=== PATIENT | female | born 1985 | race Two or more races ===

== ENCOUNTER 2022-09-14 12:09 | Emergency (ER) | payer MEDICAID, OTHER ==
[~2022-09-14] VITALS: Ht 165.1 cm; Wt 125.9 kg
[2022-09-14 12:50] VITALS: BP 133/70; PULSE 72; RESP 18; TEMP 97.1; O2SAT 95
[2022-09-14] MEDS ORDERED: CYCL-839 PO (13:41)
[2022-09-14] MEDS ORDERED: IBU600T PO (13:41)
== END 2022-09-14 13:54 | disposition home or self-care (01) ==
LOC: ER 12:09
DX: S33.5XXA Sprain of ligaments of lumbar spine, initial encounter (principal); J45.909 Unspecified asthma, uncomplicated; V43.52XA Car driver injured in collision with other type car in traffic accident, initial encounter; Y93.89 Activity, other specified; Y92.89 Other specified places as the place of occurrence of the external cause; Y99.8 Other external cause status
CPT/HCPCS: 72100

== ENCOUNTER → 2023-02-15 | Emergency (ER) | payer MEDICAID, OTHER ==
[~2023-02-15] VITALS: Ht 167.6 cm; Wt 131.4 kg
[~2023-02-15] MED LIST: CYCL-839 PO; IBU600T PO
[2023-02-15 23:34] VITALS: BP 187/97; PULSE 63; RESP 16; O2SAT 98
== END | disposition left against medical advice (07) ==
LOC: ER 23:21
DX: S61.411A Laceration without foreign body of right hand, initial encounter (principal); Z53.21 Procedure and treatment not carried out due to patient leaving prior to being seen by health care provider; W26.8XXA Contact with other sharp object(s), not elsewhere classified, initial encounter; Y93.89 Activity, other specified; Y92.89 Other specified places as the place of occurrence of the external cause; Y99.8 Other external cause status

== ENCOUNTER 2024-02-20 05:15 | Emergency (ER) | payer OTHER, MEDICAID ==
[~2024-02-20] VITALS: Ht 170.2 cm; Wt 136.4 kg
[2024-02-20] MEDS: KETOROLAC TROMETH 30 MG/ML 1ML VIAL IM ONE (06:35)
[2024-02-20 06:42] VITALS: PULSE 78; RESP 14; O2SAT 98
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
[2024-02-20 07:56] VITALS: BP 132/88; RESP 18; TEMP 98; O2SAT 96
[2024-02-20] MEDS: ALBUTEROL SULF 2.5 MG/0.5ML(0.5%) NEB SOLN NEB ONE (07:58)
[2024-02-20] MEDS ORDERED: CYCL-839 PO (08:33)
[2024-02-20] MEDS ORDERED: IBU600T PO (08:33)
[2024-02-20 08:34] VITALS: PULSE 61
== END 2024-02-20 08:44 | disposition home or self-care (01) ==
LOC: EDBD 05:15 → ER 05:15
DX: S39.012A Strain of muscle, fascia and tendon of lower back, initial encounter (principal); M25.512 Pain in left shoulder; R07.89 Other chest pain; E66.9 Obesity, unspecified; Z79.899 Other long term (current) drug therapy; V89.2XXA Person injured in unspecified motor-vehicle accident, traffic, initial encounter; Y93.I9 Activity, other involving external motion; Y92.488 Other paved roadways as the place of occurrence of the external cause; Y99.8 Other external cause status
CPT/HCPCS: 36415; 71045; 72100; 84484; 96372; 99284; J1885

== ENCOUNTER 2024-12-24 10:01 | Emergency (ER) | payer MEDICAID, OTHER ==
[~2024-12-24] VITALS: Ht 165.1 cm; Wt 140.7 kg
[2024-12-24] MEDS ORDERED: NAPR-746 PO (10:47)
[2024-12-24] MEDS ORDERED: METH4PAK PO (10:47)
--- NOTE | 2024-12-24 10:47 | ED.PDOC ---
Musculoskeletal HPI Comments 39-year-old female presents to the ER with a chief complaint of right wrist and elbow pain. The patient has been experiencing the pain for approximately five months, which has recently started radiating to the right elbow about a month ago. The pain has worsened with the cord exposure. 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 Patient notes on having performed with a workload of two people, exacerbating the pain over time. The patient states on taking [id number] medications which manages the pain despite the persistence. denies any other symptoms at this time. Chief Complaint: Upper Extremity Time Seen by MD: 10:11 Primary Care Provider: NONE Reviewed Notes: Nurses Notes, Medications, Allergies Allergies: Coded Allergies: NO KNOWN ALLERGIES (Unverified , 09/14/22) Home Meds Active Scripts Naproxen (Naproxen) 500 Mg Tab, 500 MG PO BIDPC for 10 Days, #20 TAB 0 Refills Prov:JAMILA GARCIA NP 12/24/24 Methylprednisolone (Medrol Dosepak) 4 Mg Abdulaziz, 4 MG PO UD, #21 TAB 0 Refills UAD Prov:JAMILA GARCIA NP 12/24/24 Ibuprofen Micronized (MOTRIN TABLET) 600 Mg Tb, 600 MG PO TID PRN, #40 TAB *Black box warning-NSAIDS can increase risk of SD & hypertension, GI irritation, ulceration, bleed, perferation. Do not use post cardiac surgery. Use short duration/lowest effective dose. Prov:TORSTEN NIX MD 02/20/24 Cyclobenzaprine Hcl (Cyclobenzaprine Hcl) 10 Mg Tab, 10 MG PO Q8HP PRN for 3 Days, #9 TAB Prov:TORSTEN NIX MD 02/20/24 Cyclobenzaprine Hcl (Cyclobenzaprine Hcl) 10 Mg Tab, 1 TAB PO Q8HR, #15 TAB NEEDED FOR MUSCLE SPASM Prov:YVONNE IRIZARRY NP 09/14/22 Ibuprofen Micronized (MOTRIN TABLET) 600 Mg Tb, 1 TAB PO TID PRN, #20 TAB NEEDED FOR PAIN Prov:YVONNE IRIZARRY NP 09/14/22 Information Source: Patient Mode of Arrival: Ambulatory Location: Right Extremity Location: Elbow, Wrist Timing: Months Prehospital treatment: None Severity: Moderate Able to Move Extremity: Yes Bear Weight: Limited Pain: Moderate Hand Dominance: Right Mechanism: Spontaneous Circumstances: Work Related (possible) Onset of Symptoms: Spontaneous Symptoms: Pain DVT Risk Factors: NONE Associated signs and symptoms: Wrist pain, Elbow pain Past Medical History PAST MEDICAL HISTORY: Denies Surgical History: Denies all surgeries SOLAR DESIGNER/INSTALLER History: No Pertinent SOLAR DESIGNER/INSTALLER History Family History Family History: Reviewed,noncontributory to illness, Unknown Social History Smoker: Non-Smoker Alcohol: Denies ETOH Use Drugs: Denies Drug Use Lives In: Home Constitutional: denies: chills, diaphoresis, fatigue, fever, malaise, sweats, weakness, others EENTM: denies: blurred vision, double vision, ear bleeding, ear discharge, ear drainage, ear pain, ear ringing, eye pain, eye redness, hearing loss, mouth pain, mouth swelling, nasal discharge, nose bleeding, nose congestion, nose pain, photophobia, tearing, throat pain, throat swelling, voice changes, others Respiratory: denies: cough, hemoptysis, orthopnea, SOB at rest, shortness of breath, SOB with excertion, stridor, wheezing, others Cardiovascular: denies: chest pain, dizzy spells, diaphoresis, Dyspnea on exertion, edema, irregular heart beat, left arm pain, lightheadedness, palpitations, PND, syncope, others Gastrointestinal: denies: abdomen distended, abdominal pain, blood streaked bowels, constipated, diarrhea, dysphagia, difficulty swallowing, hematemesis, melena, nausea, poor appetite, poor fluid intake, rectal bleeding, rectal pain, vomiting, others Genitourinary: denies: abnormal vagina bleeding, burning, dyspareunia, dysuria, flank pain, frequency, hematuria, incontinence, pain, , vagina discharge, urgency, others Neurological: denies: dizziness, fainting, headache, left sided numbness, left sided weakness, numbness, paresthesia, pre-existing deficit, right sided numbness, right sided weakness, seizure, speech problems, tingling, tremors, weakness, others Musculoskeletal: reports: others (Right wrist and right elbow pain); denies: back pain, gout, joint pain, joint swelling, muscle pain, muscle stiffness, neck pain Integumetry: denies: bruises, change in color, change in hair/nails, dryness, laceration, lesions, lumps, rash, wounds, others Allergic/Immunocompromised: denies: Difficulty Healing, Frequent Infections, Hives, Itching, others Hematologic/Lymphatic: denies: anemia, blood clots, easy bleeding, easy bruising, swollen glands, others Endocrine: denies: excessive hunger, excessive sweating, excessive thirst, excessive urination, flushing, intolerance to cold, intolerance to heat, unexplained weight gain, unexplained weight loss, others Psychiatric: denies: anxiety, bipolar disorder, depression, hopeless, panic disorder, schizophrenia, sleepless, suicidal, others All Other Systems: Reviewed and Negative Physical Exam General Appearance: No Apparent Distress, Normal HEENT: Normal ENT Inspection, Pharynx Normal, TMs Normal Neck: Full Range of Motion, Non-Tender, Normal, Normal Inspection Respiratory: Chest Non-Tender, Lungs Clear, No Accessory Muscle Use, No Respiratory Distress, Normal Breath Sounds Cardiovascular: No Edema, No JVD, No Murmur, No Gallop, Normal Peripheral Pulses, Regular Rate/Rhythm Breast Exam: Deferred Gastrointestinal: No Organomegaly, Non Tender, No Pulsatile Mass, Normal Bowel Sounds, Soft Genitalia: Deferred Pelvic: Deferred Rectal: Deferred Extremities: No calf tenderness, Normal capillary refill, Normal inspection, Normal range of motion, Non-tender, No pedal edema Musculoskeletal : Apperance: Normal Neurologic: Alert, police commissioner II-XII nml as Tested, No Motor Deficits, Normal Affect, Normal Mood, No Sensory Deficits Cerebellar Function: Normal Reflexes: Normal Skin: Dry, Normal Color, Warm Lymphatic: No Adenopathy Was a procedure done? Was a procedure done?: No X-Ray, Labs, Meds, VS Vital Signs Date Time Temp Pulse Resp B/P (MAP) Pulse Ox O2 Delivery O2 Flow Rate FiO2 12/24/24 11:02 98 16 99 Room Air 12/24/24 11:02 98.0 98 16 142/87 (105) 99 98.0 12/24/24 10:02 98.1 99 16 139/91 100 98.1 Current Medications Medications (Trade) Dose Ordered Sig/Colby Route Start Time Stop Time Status Last Admin Ketorolac Tromethamine (Toradol Injection) 60 mg ONCE ONCE IM 12/24/24 10:45 12/24/24 10:46 DC 12/24/24 10:50 Methylprednisolone Sodium Succinate (Solu Medrol) 125 mg ONCE ONCE IM 12/24/24 10:45 12/24/24 10:46 DC 12/24/24 10:50 X-Ray, Labs, Meds, VS Comment 39-year-old female presents to the ER with a chief complaint of right wrist and elbow pain. Patient arrives alert and oriented, ABC's intact, afebrile, vital signs stable, saturating well in room air Patient was given: Prednisone, ketorolac injection. Tolerated medications with no adverse reaction. Additional MDM Review of External, Non-ED records: External records reviewed. Discussion with independent historian (EMS, family) history obtained from the patient/parents (if applicable) at bedside Chronic conditions affecting care: None Social determinants of health affecting care: None Consideration of admission (observation or admission): I considered escalation of care to admission for this patient, however given the reassuring workup, the patient is safe for outpatient management. Discussion with the Radiology: No Tests considered but not performed: Prescription medication considered but not given: 12 lead EKG interpretation: Time of 1ST Reevaluation: 10:40 Reevaluation 1ST: Unchanged Patient Education/Counseling: Diagnosis, Treatment, Prognosis Family Education/Counseling: No Family Present Departure 1 Departure Time of Disposition: 10:45 Impression: Primary Impression: Wrist pain Qualified Codes: M25.531 - Pain in right wrist Disposition: 01 HOME / SELF CARE / HOMELESS Condition: Stable e-Prescriptions Naproxen (Naproxen) 500 Mg Tab 500 MG PO BIDPC for 10 Days, #20 TAB 0 Refills Prov: JAMILA GARCIA NP 12/24/24 Methylprednisolone (Medrol Dosepak) 4 Mg Abdulaziz 4 MG PO UD, #21 TAB 0 Refills UAD Prov: JAMILA GARCIA NP 12/24/24 Critical Care Note Critical Care Time?: No Stability Stability form required: No I personally scribed for JAMILA GARCIA NP ([email or web address]) on 12/24/24 at 11:15. Electronically submitted by Kamaljit Soto ([email or web address]). JAMILA GARCIA NP Dec 24, 2024 10:47
[2024-12-24] MEDS: methylPREDNISolone SOD SUCC 125 MG/2 ML VL IM ONE (10:50)
[2024-12-24] MEDS: KETOROLAC TROMETH 60MG/2ML VIAL IM ONE (10:50)
[2024-12-24 11:02] VITALS: BP 142/87; PULSE 98; RESP 16; TEMP 98; O2SAT 99
== END 2024-12-24 11:05 | disposition home or self-care (01) ==
LOC: ER 10:01
DX: M25.531 Pain in right wrist (principal); M25.521 Pain in right elbow
CPT/HCPCS: 96372; 99284; J1885; J2919

== ENCOUNTER 2025-02-18 08:38 | Emergency (ER) | payer MEDICAID, OTHER ==
[~2025-02-18] VITALS: Ht 165.1 cm; Wt 141.4 kg
[~2025-02-18 08:38] MED LIST changes: +METH4PAK PO; +NAPR-746 PO
[2025-02-18 08:43] VITALS: TEMP 97.9
[2025-02-18 08:57] LABS: Hematocrit 40.9 % (36.0-46.0); Hemoglobin 13.7 g/dL (12.2-16.2); Mean Corpuscular Hemoglobin 28.1 pg (28.0-32.0); Mean Corpuscular Volume 83.9 fL (80.0-100.0); Nucleated Red Blood Cells % 0.0 %
[2025-02-18 09:11] LABS: Albumin 4.7 g/dL (3.2-4.8); Alkaline Phosphatase 93 U/L (46-116); Anion Gap 9 (5-15); BUN/Creatinine Ratio 14.9 (10.0-20.0); Blood Urea Nitrogen 11 mg/dL (9-23); Calcium 9.5 mg/dL (8.7-10.4); Carbon Dioxide 25 mmol/L (20-31); Chloride 106 mmol/L (98-107); Glucose 98 mg/dL (74-106); Magnesium 2.1 mg/dL (1.6-2.6); Potassium 4.2 mmol/L (3.5-5.1); Sodium 140 mmol/L (136-145); Total Protein 8.1 g/dL (5.7-8.2)
[2025-02-18 09:12] LABS: Alanine Aminotransferase 53 U/L (7-40); Bilirubin, Total 0.5 mg/dL (0.2-1.0)
--- NOTE | 2025-02-18 09:12 | ED.PDOC ---
HPI Comments 39 year old female with PMHx HTN presents to the ED with a chief complaint of chest pain onset 1 day. Patient states she had an argument at work with her boss, since then has been experiencing constant, LT-sided chest pain. Patient has experienced pain in the past after stressful situation, patient is currently feeling anxious. Denies shortness of breath, numbness/tingling, dizziness, headache, nausea, vomiting, diarrhea, abdominal pain. No other symptoms or modifying factors present at this time. Chief Complaint: Chest Pain Time Seen by MD: 09:00 Primary Care Provider: NONE Reviewed Notes: Medications, Allergies Allergies: Coded Allergies: NO KNOWN ALLERGIES (Unverified , 09/14/22) Home Meds Active Scripts Naproxen (Naproxen) 500 Mg Tab, 500 MG PO BIDPC for 10 Days, #20 TAB 0 Refills Prov:JAMILA GARCIA NP 12/24/24 Methylprednisolone (Medrol Dosepak) 4 Mg Abdulaziz, 4 MG PO UD, #21 TAB 0 Refills UAD Prov:JAMILA GARCIA NP 12/24/24 Ibuprofen Micronized (MOTRIN TABLET) 600 Mg Tb, 600 MG PO TID PRN, #40 TAB *Black box warning-NSAIDS can increase risk of NH & hypertension, GI irritation, ulceration, bleed, perferation. Do not use post cardiac surgery. Use short duration/lowest effective dose. Prov:TORSTEN NIX MD 02/20/24 Cyclobenzaprine Hcl (Cyclobenzaprine Hcl) 10 Mg Tab, 10 MG PO Q8HP PRN for 3 Days, #9 TAB Prov:TORSTEN NIX MD 02/20/24 Cyclobenzaprine Hcl (Cyclobenzaprine Hcl) 10 Mg Tab, 1 TAB PO Q8HR, #15 TAB NEEDED FOR MUSCLE SPASM Prov:YVONNE IRIZARRY NP 09/14/22 Ibuprofen Micronized (MOTRIN TABLET) 600 Mg Tb, 1 TAB PO TID PRN, #20 TAB NEEDED FOR PAIN Prov:YVONNE IRIZARRY NP 09/14/22 Information Source: Patient Mode of Arrival: Ambulatory Severity: Moderate Timing: Days Duration: Since onset Prehospital treatment: None Location: Chest (L) Radiation: No Radiation Quality: Sharp Onset: At Rest Cardiac Risk Factors: HTN PE Risk Factors: None History of: None Modifying Factors: Nothing Past Medical History PAST MEDICAL HISTORY: HTN Surgical History: Denies all surgeries [employer]ACHINE History: No Pertinent [employer]ACHINE History Family History Family History: Reviewed,noncontributory to illness, Unknown Social History Smoker: Non-Smoker Alcohol: Denies ETOH Use Drugs: Denies Drug Use Lives In: Home Constitutional: denies: chills, diaphoresis, fatigue, fever, malaise, sweats, weakness, others EENTM: denies: blurred vision, double vision, ear bleeding, ear discharge, ear drainage, ear pain, ear ringing, eye pain, eye redness, hearing loss, mouth pain, mouth swelling, nasal discharge, nose bleeding, nose congestion, nose pain, photophobia, tearing, throat pain, throat swelling, voice changes, others Respiratory: denies: cough, hemoptysis, orthopnea, SOB at rest, shortness of breath, SOB with excertion, stridor, wheezing, others Cardiovascular: reports: chest pain; denies: dizzy spells, diaphoresis, Dyspnea on exertion, edema, irregular heart beat, left arm pain, lightheadedness, palpi tations, PND, syncope, others Gastrointestinal: denies: abdomen distended, abdominal pain, blood streaked bowels, constipated, diarrhea, dysphagia, difficulty swallowing, hematemesis, melena, nausea, poor appetite, poor fluid intake, rectal bleeding, rectal pain, vomiting, others Genitourinary: denies: abnormal vagina bleeding, burning, dyspareunia, dysuria, flank pain, frequency, hematuria, incontinence, pain, , vagina discharge, urgency, others Neurological: denies: dizziness, fainting, headache, left sided numbness, left sided weakness, numbness, paresthesia, pre-existing deficit, right sided numbness, right sided weakness, seizure, speech problems, tingling, tremors, weakness, others Musculoskeletal: denies: back pain, gout, joint pain, joint swelling, muscle pain, muscle stiffness, neck pain, others Integumetry: denies: bruises, change in color, change in hair/nails, dryness, laceration, lesions, lumps, rash, wounds, others Allergic/Immunocompromised: denies: Difficulty Healing, Frequent Infections, Hives, Itching, others Hematologic/Lymphatic: denies: anemia, blood clots, easy bleeding, easy bru ising, swollen glands, others Endocrine: denies: excessive hunger, excessive sweating, excessive thirst, e xcessive urination, flushing, intolerance to cold, intolerance to heat, unexplained weight gain, unexplained weight loss, others Psychiatric: reports: anxiety; denies: bipolar disorder, depression, hopeless, panic disorder, schizophrenia, sleepless, suicidal, others All Other Systems: Reviewed and Negative Physical Exam General Appearance: Moderate Distress, Normal HEENT: Normal ENT Inspection, Pharynx Normal, TMs Normal Neck: Full Range of Motion, Non-Tender, Normal, Normal Inspection Respiratory: Chest Non-Tender, Lungs Clear, No Accessory Muscle Use, No Respiratory Distress, Normal Breath Sounds Cardiovascular: No Edema, No JVD, No Murmur, No Gallop, Normal Peripheral Pulses, Regular Rate/Rhythm Breast Exam: Deferred Gastrointestinal: No Organomegaly, Non Tender, No Pulsatile Mass, Normal Bowel Sounds, Soft Genitalia: Deferred Pelvic: Deferred Rectal: Deferred Extremities: No calf tenderness, Normal capillary refill, Normal inspection, Normal range of motion, Non-tender, No pedal edema Musculoskeletal : Apperance: Normal Neurologic: Alert, counselor aid II-XII nml as Tested, No Motor Deficits, Normal Affect, Normal Mood, No Sensory Deficits Cerebellar Function: Normal Reflexes: Normal Skin: Dry, Normal Color, Warm Peripheral Pulses: 3+ Radial (R), 3+ Radial (L) Lymphatic: No Adenopathy Was a procedure done? Was a procedure done?: No CP Differential Dx Differential Diagnosis: A-fib, A-Flutter, Angina, Anxiety / Panic Attack, Atrial Dysrhythmia, Electrolyte Disorder X-Ray, Labs, Meds, VS Vital Signs Date Time Temp Pulse Resp B/P (MAP) Pulse Ox O2 Delivery O2 Flow Rate FiO2 02/18/25 11:01 73 12 114/45 (68) 99 02/18/25 10:54 Room Air* 0 21 02/18/25 09:36 79 02/18/25 08:44 75 02/18/25 08:43 97.9 76 20 136/90 96 97.9 Lab Test 02/18/25 11:47 02/18/25 10:50 02/18/25 10:26 02/18/25 08:44 Range/Units Troponin I High Sensitivity < 3 L < 3 L < 3 L </=34 ng/L Urine Color Colorless Yellow Urine Clarity Turbid H Clear Urine pH 6.5 5.0-9.0 Urine Specific [place] 1.017 1.001-1.035 Urine Protein Negative Negative Urine Ketones Negative Negative Urine Blood 3+ H Negative /uL Urine Nitrite Negative Negative Urine Bilirubin Negative Negative Urine Urobilinogen Normal Negative mg/dL Urine Leukocyte Esterase Negative Negative /uL Urine RBC 5 0 - 4 /hpf Urine Microscopic WBC 3 0-5 /HPF Urine Squamous Epithelial Cells Few <5 /hpf Urine Bacteria Few H None Seen /hpf Urine Glucose Normal Normal mg/dL White Blood Count 8.2 4.4-10.8 10^3/uL Red Blood Count 4.88 4.0-5.20 10^6/uL Hemoglobin 13.7 12.2-16.2 g/dL Hematocrit 40.9 36.0-46.0 % Mean Corpuscular Volume 83.9 80.0-100.0 fL Mean Corpuscular Hemoglobin 28.1 28.0-32.0 pg Mean Corpuscular Hemoglobin Concent 33.5 32.0-36.0 g/dL Red Cell Distribution Width 15.6 H 11.8-14.3 % Platelet Count 422 140-450 10^3/uL Mean Platelet Volume 7.3 6.9-10.8 fL Neutrophils (%) (Auto) 71.6 37.0-80.0 % Lymphocytes (%) (Auto) 19.9 10.0-50.0 % Monocytes (%) (Auto) 5.7 0.0-12.0 % Eosinophils (%) (Auto) 2.1 0.0-7.0 % Basophils (%) (Auto) 0.7 0.0-2.0 % Neutrophils # (Auto) 5.9 1.6-8.6 10 ^3/uL Lymphocytes # (Auto) 1.6 0.4-5.4 10 ^3/uL Monocytes # (Auto) 0.5 0-1.3 10 ^3/uL Eosinophils # (Auto) 0.2 0-0.8 10 ^3/uL Basophils # (Auto) 0.1 0-0.2 10 ^3/uL Nucleated Red Blood Cells 0.0 % Sodium Level 140 136-145 mmol/L Potassium Level 4.2 3.5-5.1 mmol/L Chloride Level 106 98-107 mmol/L Carbon Dioxide Level 25 20-31 mmol/L Anion Gap 9 5-15 Blood Urea Nitrogen 11 9-23 mg/dL Creatinine 0.74 0.550-1.02 mg/dL Glomerular Filtration Rate Calc 107 >90 mL/min BUN/Creatinine Ratio 14.9 10.0-20.0 Serum Glucose 98 74-106 mg/dL Calcium Level 9.5 8.7-10.4 mg/dL Magnesium Level 2.1 1.6-2.6 mg/dL Total Bilirubin 0.5 0.2-1.0 mg/dL Aspartate Amino Transferase (AST) 38 13-40 U/L Alanine Aminotransferase (ALT) 53 H 7-40 U/L Alkaline Phosphatase 93 46-116 U/L Total Protein 8.1 5.7-8.2 g/dL Albumin 4.7 3.2-4.8 g/dL Patient alert. Came in because of chest discomfort. EKG reviewed does not show any acute changes. Vitals stable. Answering questions. Cardiac marker within normal limits. Was given Ativan. Stress induced. WBC within normal limits. Hemoglobin within normal limits. Was given aspirin. Explained to the patient. Was told to follow up with her primary care physician. Was told to come back if there is any problem. [place] [address] Ph: [phone] DIAGNOSTIC IMAGING Diagnostic Imaging Report : [id number] Signed PATIENT: NOMI CABEZAS AACCT: [id number] UNIT: [id number] : 1985 LOC: ER ROOM / BED: / AGE / SEX: 39 / F ADM STATUS: REG ER SERVICE [id number] ORDERING PHYSICIAN: ALONSO ARELLANO MD PROCEDURE(s): CXRP - CHEST PORTABLE REASON: chest pain ORDER NUMBER(s): [id number], ACCESSION NUMBER(s): [id number] CHEST RADIOGRAPH Indication: chest pain Technique: Single frontal view of the chest was obtained COMPARISON: XY CHEST PORTABLE on DOS: 02/20/24 FINDINGS: Lines and Tubes: None Lungs: Increased interstital prominence. This may represent pulmonary vascular congestion and/or viral pneumonia. Pleura: No effusion.No pneumothorax. Cardiomediastinal contours: Unremarkable Bones: Unremarkable IMPRESSION: Increased interstital prominence. This may represent pulmonary vascular congestion and/or viral pneumonia. ATED BY: GIGI TRUONG MD DICTATED DATE/TIME: 02/18/25931 SIGNED BY: GIGI TRUONG MD SIGNED DATE/TIME: 02/18/25931 CC: Time of 1ST Reevaluation: 09:30 Reevaluation 1ST: Improved Patient Education/Counseling: Diagnosis, Treatment, Prognosis Family Education/Counseling: No Family Present SEPSIS Sepsis Screen Date sepsis recognized/suspect: Feb 18, 2025 Time Sepsis recognized/suspect: 08 Recent Procedure: No On Antibiotic Therapy: No Respiratory Rate >20: No Heart Rate >90: No Temp<36 C (96.8 F) or >38.3 C: No SBP <90 or MAP <65 mmHG: No New Acute Mental Status Change: No Is the patient on CPAP, BIPAP,: No Physician Orders Chest Portable (02/18/25 08:41) Electrocardigram (02/18/25 09:41) Electrocardigram (02/18/25 11:41) Vital Signs Date Time Temp Pulse Resp B/P (MAP) Pulse Ox O2 Delivery O2 Flow Rate FiO2 02/18/25 11:01 73 12 114/45 (68) 99 02/18/25 10:54 Room Air* 0 21 02/18/25 09:36 79 02/18/25 08:44 75 02/18/25 08:43 97.9 76 20 136/90 96 97.9 Laboratory Tests Test 02/18/25 08:44 White Blood Count 8.2 10^3/uL (4.4-10.8) Departure 1 Departure Time of Disposition: 09:20 Impression: Primary Impression: Musculoskeletal chest pain Additional Impression: Anxiety Disposition: 01 HOME / SELF CARE / HOMELESS Condition: Good Discharged With: Self Critical Care Note Critical Care Time?: No Stability Stability form required: No Heart Score Heart Score: Heart Score Response (Comments) Value History Slightly Suspicious 0 EKG Normal 0 Age <45 0 Risk Factors No known risk factors 0 Troponin Normal limit 0 Total 0 I personally scribed for ALONSO ARELLANO MD ([email or web address]) on 02/18/25 at 09:12. Electronically submitted by Geena Foreman ([email or web address]). I personally scribed for ALONSO ARELLANO MD ([email or web address]) on 02/18/25 at 11:38. Electronically submitted by Geena Foreman ([email or web address]). ALONSO ARELLANO MD Feb 18, 2025 09:12
--- NOTE | 2025-02-18 09:34 | DVH ---
CHEST RADIOGRAPH Indication: chest pain Technique: Single frontal view of the chest was obtained COMPARISON: XY CHEST PORTABLE on DOS: 02/20/24 FINDINGS: Lines and Tubes: None Lungs: Increased interstital prominence. This may represent pulmonary vascular congestion and/or viral pneumonia. Pleura: No effusion.No pneumothorax. Cardiomediastinal contours: Unremarkable Bones: Unremarkable IMPRESSION: Increased interstital prominence. This may represent pulmonary vascular congestion and/or viral pneumonia.
--- NOTE | 2025-02-18 09:37 | ECG ---
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
[2025-02-18 11:01] VITALS: BP 114/45; PULSE 73; RESP 12; O2SAT 99
[2025-02-18 11:52] LABS: Urine Protein, UAD Negative (Negative)
--- NOTE | 2025-02-18 20:27 | ECG ---
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
== END 2025-02-18 13:20 | disposition home or self-care (01) ==
LOC: ER 08:38
DX: R07.89 Other chest pain (principal); F41.9 Anxiety disorder, unspecified; I10 Essential (primary) hypertension
CPT/HCPCS: 36415; 71045; 80053; 81001; 83735; 84484; 85025; 93005